=== PATIENT | female | born 1950 | race Caucasian/White ===

== ENCOUNTER → 2018-05-11 | Outpatient (CLI) | payer OTHER | LOC: RAD 01:23 | DX: Z12.31 Encounter for screening mammogram for malignant neoplasm of breast (principal) ==

== ENCOUNTER → 2018-10-24 | Outpatient (CLI) | payer OTHER ==
[~2018-10-24] VITALS: Ht 162.6 cm; Wt 88.0 kg
[~2018-10-24] MED LIST: AZELASTINE137 MCG/0. NASAL; LYRICA 50 MG50 MG PO; LYRICA100 MG PO; MAXZIDE-25 MG1 EACH PO; NORCO 10-325 T1 EACH PO; NORCO 5-325 TA1 EACH PO; OCUVITE TABLET1 EAC1 PO; OLOPATADINE HC2.5 ML OPHTHALMIC; TOPROL XL100 MG PO; ZANTAC 150MG T150 MG PO
--- NOTE | ~2018-10-24 | HPC ---
[facility] [address] [place] [address] PAIN MANAGEMENT CONSULTATION Name: LANCE RUSS Room #: REG ARMANDO Rhodes.#: [id number] Admission: 10/24/18 ������������������ Attend Phys: Lauri Agrawal MD Discharge: ������������������ Date of : 50 Report #: [id number] THIS REPORT FOR: //name// CC: LAURI Ortiz DO DATE OF SERVICE: 10/24/2018 CHIEF COMPLAINT: "I hurt all over." HISTORY OF PRESENT ILLNESS: The patient is a 68-year-old female who has diffuse pain. She had breast cancer in 2004 and was treated with aggressive chemotherapy. She began experiencing neuropathy around that time. She has since that time developed pain that she would describe more as muscle pain with aches in all of her extremities, arms, legs and also in her torso. Her pain drawing demonstrates pain throughout her body. She says the pain is continuous and steady, cramping and aching. She scores as a 9/10. She does get relief from Lyrica, but the cost has become prohibitive. She also takes hydrocodone, her maximum dose was #6 hydrocodone 5/325 tablets a day for a total of 30 mg or 30 MME. Because of the opioid crisis and her own concerns and guilt for taking pain medication, she has weaned herself to four 1/2 tablets or about 10 mg of hydrocodone a day. Unfortunately, she is not better with this and finds that her pain has exacerbated as she has tried to use less oral pain medication. Her pain score on an average is an 8/10 and 9/10 today. She can reduce that score by half taking additional hydrocodone. MEDICATIONS: Include hydrocodone, Lyrica as mentioned, metoprolol, Astelin, ranitidine, triamterene, olopatadine and Ocuvite. ALLERGIES: PENICILLIN, PREDNISONE, SULFONAMIDES, ERYTHROMYCIN. She says she can only take one antibiotic, that is Keflex. PAST MEDICAL HISTORY: History of anemia and asthma. She has had issues with gastritis and gastroesophageal reflux disease and intermittent problems with her bowels, colon. She has suffered from depression. She had left mastectomy in 2004 for breast cancer and is treated with chemotherapy port placed in 2004. Other surgeries include cholecystectomy in 2000 and right ear surgery in 1975. SOCIAL HISTORY: She is . 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 She denies use of tobacco or alcohol. She is independent in most activities. Impact pain score is 63/70. She reports that her pain interferes with her [facility] [address] [place] [address] PAIN MANAGEMENT CONSULTATION Name: LANCE RUSS Room #: REG [facility] Elmer#: [id number] Admission: 10/24/18 ������������������ Attend Phys: Lauri Agrawal MD Discharge: ������������������ Date of : 50 Report #: [id number] enjoyment of life at a level of 10/10. REVIEW OF SYSTEMS: Completed by the patient. She describes fatigue, weakness, blurred vision, earaches, headaches, chronic sinus problems, shortness of breath on exertion, dyspnea at rest at times and wheezing. She has some constipation likely related to her opioid and nocturia. She complains of nervousness, depression, insomnia, sleeping about 4 hours at a time and spurts through the night. She is often tired during the day. PHYSICAL EXAMINATION: GENERAL: She is a pleasant female. Her is with her today. She gives a reasonable history. VITAL SIGNS: Her blood pressure is 146/72, heart rate 55, respirations 16. She is 5 feet 4 inches, 194 pounds, BMI is 33.3. She has diffuse myofascial tenderness in the arms, legs and torso consistent with fibromyalgia with multiple paired trigger points. She has decreased sensation in lower extremities consistent with neuropathy. Similar complaints of tingling and numbness in the upper extremities are noted. IMPRESSION: 1. Chronic intractable pain with diffuse neuropathy, possibly secondary to chemotherapy over 10 years ago. 2. Fibromyalgia with criteria met for this subjective disorder with multiple paired tender points, sleep disturbance and a history of depression. She also has chronic fatigue issues. 3. Chronic use of opioid medication and polypharmacy for treatment of chronic pain. 4. History of breast cancer. RECOMMENDATION: 1. In regards to her Lyrica, I would encourage her to see what happens on 01/08/2019. Lyrica should go off-patent for [employer]. If it does so, then she may be able to continue on Lyrica perhaps increasing her dose to a level where she will get better results. This may have an opioid sparing effect. Regarding opioid, we had a lengthy discussion today. Her maximum daily dose, even at the dose that she was taking prior to weaning herself, was 30 morphine milligram equivalents. While there is much controversy about the use of opioids, there is also a group of physicians including myself that believe that opioids provide meaningful and reasonable relief without causing addiction in every patient. I do not believe that she is addicted to her medication, but I do believe that she is dependent on it to provide additional relief of pain and improve her day-to-day function. She does not appear, from her history, today to have used her medication appropriately. I would consider reasonable to provide her with medication under terms of a [facility] guideline monitoring her [address] [place] [address] PAIN MANAGEMENT CONSULTATION Name: LANCE RUSS Room #: REG ARMANDO Rhodes.#: [id number] Admission: 10/24/18 ������������������ Attend Phys: Lauri Agrawal MD Discharge: ������������������ Date of : 50 Report #: [id number] monthly or bimonthly intervals and providing her with up to 30-50 MME of hydrocodone, which she tolerates well. I think the risk in this is reasonable. I would treat side effects including constipation. I would encourage an active lifestyle as much as possible. Encouraged her to walk daily and get out of the house when she can. The importance of safeguarding medication to prevent diversion was discussed. We follow up all patients at 1, 2 and 3 month intervals. [place] drive for her and I think it is quite reasonable for her physician, Bill Ortiz, DO to continue to provide her medication for her. I would support his use of these medications to provide her with meaningful pain relief. 2. Other opioid medications could be trialed. We have used some methadone for neuropathy with good results, but there is certainly stigma attached to this. I think given her current response to hydrocodone, which is favorable and its cost benefit ratio, I see no reason she could not continue it indefinitely. Followup visit planned as needed. ��������������������������������������������� ���������������������������������������� By: ��������������������������������������������� [id number] Lauri Agrawal MD /nt
[2018-10-24 10:59] VITALS: BP 146/72
--- NOTE | 2018-10-24 11:10 | NUR ---
Document wound assessment on appropriate Wound Pressure, Monitor intervention!
--- NOTE | 2018-10-24 11:11 | NUR ---
Pain Clinic Assessment: 1. History of Osteoarthritis: History of Rheumatoid Arthritis: 2. Height: 5 ft. 4 in. 162.6 cm. Weight: 194.0 lb. oz. 87.998 kg. Patient's BMI: 33.3 3. Vital Signs: BP: 146/72 Pulse: 55 Resp: 16 Temp: 02 Sat: 100 ECG Mon: 4. Pain Intensity: 9 5. Fall Risk: Dizziness: Y Needs help standing or walking: N Fallen in the last 3 months: N Fall risk comments: 6. Patient on Blood Thinner: None 7. History of Hypertension: N 8. Opioid Therapy greater than 6 weeks: Y Opiate Contract Signed: 9. Risk Assessment Tool Provided: LOW 10. Functional Assessment Tool: 53/ 11. Recreational Drug Use: Never Drug Type: Tobacco Use: Never Smoker Tobacco Type: Amount or Packs/day: How Many Years: Alcohol Use: No Frequency: Quant:
== END ==
LOC: PAIN 07:02
DX: G89.4 Chronic pain syndrome (principal); G62.9 Polyneuropathy, unspecified; M79.7 Fibromyalgia; R53.83 Other fatigue; G47.9 Sleep disorder, unspecified; F32.9 Major depressive disorder, single episode, unspecified; Z79.891 Long term (current) use of opiate analgesic; Z85.3 Personal history of malignant neoplasm of breast; Z79.899 Other long term (current) drug therapy

== ENCOUNTER → 2019-05-16 | Outpatient (CLI) | payer OTHER | LOC: RAD 02:41 | DX: Z12.31 Encounter for screening mammogram for malignant neoplasm of breast (principal) ==